=== PATIENT | male | born 1965 ===

== ENCOUNTER 2022-06-20 12:02 | Day surgery (SDC) | payer OTHER ==
[~2022-06-20] VITALS: Ht 170.2 cm; Wt 72.6 kg
== END 2022-06-20 18:15 | disposition home or self-care (01) ==
LOC: CIR.AMB 12:02
PROVIDERS: ATTEND Orthopaedic Surgery
DX: M19.022 Primary osteoarthritis, left elbow (principal); G56.22 Lesion of ulnar nerve, left upper limb; Z20.822 Contact with and (suspected) exposure to COVID-19; M65.9 Synovitis and tenosynovitis, unspecified; M94.222 Chondromalacia, left elbow; G62.9 Polyneuropathy, unspecified; J45.909 Unspecified asthma, uncomplicated